=== PATIENT | male | born 1995 | race Caucasian/White ===

== ENCOUNTER 2017-05-05 17:01 | Emergency (ER) | payer BC, MEDICAID, OTHER ==
[2017-05-05 17:21] VITALS: O2SAT 95
[2017-05-05] MEDS ORDERED: LET GEL TOPICAL 1 EA SYR TP ONE (18:03)
[2017-05-05] MEDS ORDERED: OXYCODONE/APAP 5/325 TAB PO ONE (18:03)
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
[2017-05-05] MEDS ORDERED: AMOXICILLIN/CLAVULANATE POT 875/125 MG TAB PO ONE (19:43)
[2017-05-05] MEDS ORDERED: HYDROCOD/APAP 5/325 PREPACK#6 BTL TAKEHOME ONE (19:43)
[2017-05-05] MEDS ORDERED: BACITRACIN OINTMENT 1 PACKET TP ONE (19:58)
[2017-05-05 20:08] VITALS: BP 148/81; PULSE 81; RESP 15; TEMP 98.1
== END 2017-05-05 20:37 | disposition home or self-care (01) ==
PROC: 0HQNXZZ Repair Left Foot Skin, External Approach (ICD-10-PCS; principal; 2017-05-05)
DX: S91.312A Laceration without foreign body, left foot, initial encounter (principal); V29.49XA Motorcycle driver injured in collision with other motor vehicles in traffic accident, initial encounter; Y92.410 Unspecified street and highway as the place of occurrence of the external cause; Y99.8 Other external cause status; Y93.89 Activity, other specified
CPT/HCPCS: L4386

== ENCOUNTER 2017-05-07 08:31 | Emergency (ER) | payer BC ==
[2017-05-07 08:36] VITALS: BP 128/63; PULSE 78; RESP 16; TEMP 97.7; O2SAT 94
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
== END 2017-05-07 09:11 | disposition home or self-care (01) ==
DX: Z48.01 Encounter for change or removal of surgical wound dressing (principal)
CPT/HCPCS: G0463

== ENCOUNTER 2017-05-12 12:10 | Emergency (ER) | payer BC ==
[2017-05-12 12:20] VITALS: BP 152/62; PULSE 90; RESP 18; TEMP 98.6; O2SAT 96
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
== END 2017-05-12 13:23 | disposition home or self-care (01) ==
DX: M25.472 Effusion, left ankle (principal)